=== PATIENT | female | born 1945 | race Caucasian/White ===

== ENCOUNTER 2019-10-06 13:54 | Outpatient (CLI) | payer OTHER, MEDICARE, SELFPAY ==
--- NOTE | 2019-10-06 14:36 | USCV_ITS ---
Halina Rivero Age: 74 Gender: F : 1945 Exam Date: 10/06/2019 14:39 Ordering Phys: Yossi Pineda MD Technologist: Magdalene Patiño Exam Location: [facility] [place] Risk Factors: None Previous Vascular Surgery: None Right Brachial BP: / Left Brachial BP: / Right Left Velocity (cm/s) Spectral Plaque Velocity (cm/s) Spectral Plaque Syst/Diast Broadening Syst/Diast Broadening 98.10/ 12.10 Prox CCA 119.60/ 12.10 103.60/14.30 Mid CCA 112.40/ 18.10 99.20/ 16.50 Distal CCA 93.10 / 15.70 81.60/ 12.20 Prox ICA 113.60/ 19.30 71.30/ 15.00 Mid ICA 103.90/ 18.10 110.70/24.40 Distal ICA 100.30/ 20.50 118.00 ECA 113.60 1.07 ICA/CCA 1.01 Antegrade Vertebral Antegrade 54.40/ 6.60 cm/s 43.10/ 9.10 cm/s Tri Subclavian Bi 139.0 156.9 0 0 FINDINGS Comparison: none available. No significant elevation of systolic or diastolic velocities. Waveforms are normal. Minimal bilateral, calcified plaque at the bifurcations with no elevation of velocity. Bilateral antegrade vertebral arteries. CONCLUSIONS Bilateral ICA stenosis less than 50%. Mild bilateral atherosclerosis. Dr. Kristen Hernandez DO (Electronically Signed) Final Date: 07 October 2019 07:42 S
== END 2019-10-06 13:55 | disposition home or self-care (01) ==
PROVIDERS: Family Provider Family Medicine; PCP Family Medicine; Visit Provider Family Medicine
DX: I10 Essential (primary) hypertension (principal); I65.23 Occlusion and stenosis of bilateral carotid arteries
CPT/HCPCS: 93880

== ENCOUNTER 2020-07-03 08:43 | Outpatient (CLI) | payer OTHER, MEDICARE, SELFPAY ==
--- NOTE | 2020-07-03 08:48 | MM_ITS ---
WS: [id number] BILATERAL SCREENING DIGITAL MAMMOGRAM WITH CAD HISTORY: SCREENING COMPARISON: 07/01/2019, 06/22/2018, 06/01/2018 04/17/2017 Bilateral CC and MLO views submitted. Computer aided detection analyzed. Breast composition: The breasts are heterogeneously dense, which may obscure small masses. No suspici ous masses, microcalcifications or architectural distortion. Scattered asymmetries are stable. MM/[place] [id number] IMPRESSION: BI-RADS: 2-Benign FOLLOW UP: 1 Year Follow-up
== END 2020-07-03 08:44 | disposition home or self-care (01) ==
LOC: RADSHAW 08:47
PROVIDERS: PCP Family Medicine; Visit Provider Family Medicine
DX: Z12.31 Encounter for screening mammogram for malignant neoplasm of breast (principal)
CPT/HCPCS: 77067

== ENCOUNTER 2021-08-16 09:33 | Outpatient (CLI) | payer MEDICARE, SELFPAY ==
--- NOTE | 2021-08-16 09:45 | MM_ITS ---
WS: [id number] Bilateral screening digital mammogram, 08/16/2021 Clinical Data: SCREENING Comparison: 07/03/2020, 07/01/2019, 06/22/2018, 06/01/2018, 04/17/2017, 04/07/2016, 01/05/2014, 12/21/2013, , 10/13/2012, 10/08/2011, 05/14/2010, 05/02/2010, 04/17/2009, 03/27/2009, 12/13/2007, 10/28/2006. Findings: The breast parenchymal pattern shows heterogeneous density. No spiculated masses or clustered calcif ications are seen. There are no secondary signs of carcinoma. MM/[place] [id number] Impression: 1. Negative bilateral mammogram unchanged. 2. Recommend annual screening mammograms. BIRADS: 1-Negative FOLLOW UP: 1 Year Follow-up The CAD production checker was used.
== END 2021-08-16 09:34 | disposition home or self-care (01) ==
LOC: RADSHAW 09:39
PROVIDERS: PCP Family Medicine; Visit Provider Family Medicine
DX: Z12.31 Encounter for screening mammogram for malignant neoplasm of breast (principal)
CPT/HCPCS: 77067

== ENCOUNTER → 2022-05-27 08:57 | Outpatient (BNVA) | payer MEDICARE, SELFPAY | PROVIDERS: PCP Family Medicine; Visit Provider Family Medicine | DX: I10 Essential (primary) hypertension (principal) | CPT/HCPCS: 80053; 80061 ==

== ENCOUNTER → 2022-06-10 13:35 | Outpatient (BNVA) | payer MEDICARE, SELFPAY | PROVIDERS: PCP Family Medicine; Visit Provider Family Medicine | DX: L98.9 Disorder of the skin and subcutaneous tissue, unspecified (principal); E87.1 Hypo-osmolality and hyponatremia; I10 Essential (primary) hypertension | CPT/HCPCS: 80048; 88304 ==

== ENCOUNTER → 2022-07-15 11:40 | Outpatient (BNVA) | payer MEDICARE, SELFPAY | PROVIDERS: PCP Family Medicine; Visit Provider Family Medicine | DX: E87.1 Hypo-osmolality and hyponatremia (principal); I10 Essential (primary) hypertension | CPT/HCPCS: 80048 ==

== ENCOUNTER 2022-08-18 07:35 | Outpatient (CLI) | payer MEDICARE, SELFPAY ==
--- NOTE | 2022-08-18 07:43 | MM_ITS ---
WS: [id number] BILATERAL SCREENING DIGITAL TOMOSYNTHESIS MAMMOGRAM WITH CAD HISTORY: SCREENING COMPARISON: 08/16/2021, 07/03/2020 Bilateral CC and MLO views with tomosynthesis and synthetic mammography submitted. Computer aided det ection analyzed. Breast composition: The breasts are heterogeneously dense, which may obscure small masses. No suspici ous masses, microcalcifications or architectural distortion. MM/[place] [id number] IMPRESSION: BI-RADS: 1-Negative FOLLOW UP: 1 Year Follow-up
== END 2022-08-18 07:36 | disposition home or self-care (01) ==
LOC: RAD 07:35
PROVIDERS: PCP Family Medicine; Visit Provider Family Medicine
DX: Z12.31 Encounter for screening mammogram for malignant neoplasm of breast (principal)
CPT/HCPCS: 77063; 77067

== ENCOUNTER → 2022-12-05 08:10 | Outpatient (BNVA) | payer MEDICARE, SELFPAY | PROVIDERS: PCP Family Medicine; Visit Provider Family Medicine | DX: E78.5 Hyperlipidemia, unspecified (principal); E87.1 Hypo-osmolality and hyponatremia; I10 Essential (primary) hypertension | CPT/HCPCS: 80053; 80061 ==

== ENCOUNTER 2023-09-18 09:39 | Outpatient (CLI) | payer MEDICARE, SELFPAY ==
--- NOTE | 2023-09-18 09:48 | MM_ITS ---
WS: [id number] BILATERAL SCREENING DIGITAL TOMOSYNTHESIS MAMMOGRAM WITH CAD HISTORY: SCREENING COMPARISON: 08/18/2022, 08/16/2021, 07/01/2019 and 06/01/2018 Bilateral CC and MLO views with tomosynthesis and synthetic mammography submitted. Computer aided det ection analyzed. Breast composition: The breasts are heterogeneously dense, which may obscure small masses. No suspici ous masses, microcalcifications or architectural distortion. Stable appearance of the benign-appearin g calcifications and asymmetries in each breast. IMPRESSION: MM/[place] [id number] BI-RADS: 2-Benign FOLLOW UP: 1 Year Follow-up
== END 2023-09-18 09:40 | disposition home or self-care (01) ==
LOC: RAD 09:39
PROVIDERS: PCP Family Medicine; Visit Provider Family Medicine
DX: Z12.31 Encounter for screening mammogram for malignant neoplasm of breast (principal)
CPT/HCPCS: 77063; 77067

== ENCOUNTER → 2024-06-08 09:39 | Outpatient (BNVA) | payer MEDICARE, SELFPAY | PROVIDERS: PCP Family Medicine; Visit Provider Family Medicine | DX: I10 Essential (primary) hypertension (principal); E78.5 Hyperlipidemia, unspecified | CPT/HCPCS: 80053; 80061; 80184; 85025 ==

== ENCOUNTER 2024-06-20 13:13 | Outpatient (CLI) | payer MEDICARE, SELFPAY ==
--- NOTE | 2024-06-20 13:30 | XR_ITS ---
WS: [id number] DEXA (DUAL ENERGY X-RAY ABSORPTIOMETRY) Bone mineral density was performed using a [employer] machine. HISTORY: f/u after treatment COMPARISON: 05/26/2019 Lumbar spine BMD (L1-L4): 1.062 g/cm2 T score: -1.0 Z score: 1.3 Total hip BMD: Left: 0.886 g/cm2. T score: -1.0 Z score: 1.2 Right: 0.843 g/cm2. T score: -1.3 Z score: 0.9 10 year probability of a major osteoporotic fracture is 10.6%. Compared to the prior study from 05/26/2019. Lumbar spine bone mineral density has decreased by 3.7%. Bilateral hips bone mineral density has decreased by 3.0%. XR/XR DEXA axial skeleton* [id number] IMPRESSION: OSTEOPENIA based upon the WHO classification for females. Significant decrease in bone mineral density within the lumbar spine and hips s julian the prior study.
== END 2024-06-20 13:14 | disposition home or self-care (01) ==
LOC: RAD 13:15
PROVIDERS: PCP Family Medicine; Visit Provider Family Medicine
DX: M81.0 Age-related osteoporosis without current pathological fracture (principal); Z00.00 Encounter for general adult medical examination without abnormal findings; M85.80 Other specified disorders of bone density and structure, unspecified site
CPT/HCPCS: 77080

== ENCOUNTER 2024-08-10 23:15 | Emergency (ER) | payer MEDICARE, SELFPAY ==
[2024-08-10 23:17] VITALS: BP 183/81; PULSE 78; RESP 15; TEMP 36.8; O2SAT 98; BMI 19.2
--- NOTE | 2024-08-10 23:21 | ECG_ITS ---
[facility]: 2024-[facility]10 Pat Name: Halina Rivero Department: Room: Gender: Female [place] Reporter: : 1945 Requested By: Sherron Noriega Order Number: [id number] Carlotta MD: Akhil Gorman M.D. Measurements Intervals [place] Rate: 75 P: 79 MO: 191 QRS: 75 QRSD: 86 T: 30 QT: 362 QTc: 404 Interpretive Statements SINUS RHYTHM POSSIBLE LEFT ATRIAL ENLARGEMENT [-0.1mV P-WAVE IN V1/V2] No previous ECG available for comparison Electronically Signed On 08-11-2024 13:49:45 COUNTER POCKET [employer] by Akhil Gorman M.D. [email or web address]
--- NOTE | 2024-08-10 23:27 | XRR_ITS ---
PROCEDURE INFORMATION: Exam: XR Chest Exam date and time: 08/10/2024 11:49 PM Age: 78 years old Clinical indication: Other: HTN; Additional info: Hypertension TECHNIQUE: Imaging protocol: Radiologic exam of the chest. Views: 1 view. COMPARISON: No relevant prior studies available. FINDINGS: Lungs: Unremarkable. No consolidation. Pleural spaces: Unremarkable. No pleural effusion. No pneumothorax. Heart/Mediastinum: Unremarkable. No cardiomegaly. Bones/joints: Mild scoliosis convex right. XR/XR chest 1V portable [id number] IMPRESSION: No acute findings.
--- NOTE | 2024-08-10 23:38 | ED_ITS ---
HPI - Recheck/Abnormal Lab/Rx 2 General: Chief Complaint: Recheck/Abnormal Lab/Rx Stated Complaint: BP High Time Seen by Provider: 08/10/24 23:20 History of Present Illness: 78-year-old female with a history of hyp ertension who presents emergency room with hypertension. She says she had a band feeling around her head. So she had checked her blood pressure 3 times and it kept going up until it was over 200 systolic. She took some extra blood pressure meds and it still did not come down so she came to the emergency room. No chest pain. No altered mental status. No shortness of breath. No nausea or vomiting. No fevers. No cough. Related Data Previous Rx's Medication Instructions Recorded amlodipine 5 mg tablet 5 mg PO BID #180 tabs 06/08/24 metoprolol tartrate 50 mg tablet 50 mg PO BID #180 tabs 06/08/24 phenobarbital 32.4 mg tablet 32.4 mg PO DIRECTED #90 tabs 06/09/24 montelukast 10 mg tablet See Rx Instructions .Route 08/01/24 .COMPLEX #90 tabs Allergies Allergy/AdvReac Type Severity Reaction Status Date / Time codeine AdvReac Intermediate vomiting Verified 08/10/24 23:33 lisinopril AdvReac Intermediate cough Verified 08/10/24 23:33 Review of Systems 2 Narrative: Constitutional symptoms: Negative except as documented in HPI. Skin symptoms: Negative except as documented in HPI. Eye symptoms: Negative except as documented in HPI. ENMT symptoms: Negative except as documented in HPI. Respiratory symptoms: Negative except as documented in HPI. Cardiovascular symptoms: Negative except as documented in HPI. Gastrointestinal symptoms: Negative except as documented in HPI. Genitourinary symptoms: Negative except as documented in HPI. Musculoskeletal symptoms: Negative except as documented in HPI. Neurologic symptoms: Negative except as documented in HPI. Psychiatric symptoms: Negative except as documented in HPI. Endocrine symptoms: Negative except as documented in HPI. PFSH ED 2 PFSH: Medical History Hyperlipidemia Hypertension Social History Smoking and tobacco/nicotine status: never used tobacco/nicotine Physical Exam 2 Narrative: EXAM NARRATIVE: General: Alert, no acute distress. Skin: Warm, dry. Head: Normocephalic, atraumatic. Neck: Supple, trachea midline. Eye: Extraocular movements are intact. Ears, nose, mouth and throat: mucosa moist. Cardiovascular: Regular, Normal peripheral perfusion. Respiratory: Lungs are clear to auscultation, respirations are non-labored, breath sounds are equal, Symmetrical chest wall expansion. Gastrointestinal: Soft, Nontender, Non distended Musculoskeletal: Normal ROM, no deformity. Neurological: Alert and oriented, No focal neurological deficit observed. Psychiatric: Cooperative, appropriate mood & affect. Course 2 Vital Signs: Vital signs: Vital Signs Temperature 98.3 F 08/10/24 23:17 Pulse Rate 68 08/11/24 00:03 Respiratory Rate 16 08/11/24 00:03 Blood Pressure 144/74 08/11/24 00:03 Pulse Oximetry 97 08/11/24 00:03 Oxygen Delivery Me thod Room Air 08/10/24 23:17 MDM - Recheck/Abnormal Lab/Rx Medical Decision Making Medical decision making: Differential diagnosis including but not limited to and based on the above HPI, review of systems and physical exam: Patient presents with hypertension: Essential hypertension. Stroke. acute coronary syndrome. kidney failure. congestive heart failure. anxiety Orders placed to evaluate differential diagnosis based on the above differential, HPI and physical exam EKG: Time 2321. Rate 75. Normal sinus rhythm, No ST-T changes, no ectopy, normal FL & QRS intervals, This was reviewed and interpreted by myself the ER physician at 2322 Chest x-ray: No acute process. No infiltrate. No pneumothorax. This was reviewed and interpreted by myself the emergency room physician. I also reviewed the radiology report. Lab Review: Laboratory results were reviewed and interpreted by myself the emergency room physician. White count is slightly low at 3.2. No anemia. Hemoglobin is 15. BUN/creatinine are normal at 17 and 0.7. Troponin is negative. She has had no chest pain. No UTI. I reviewed the patient's medical record. Reexamination: Patient remained stable. No increased work of breathing. No altered mental status. No focal motor deficits. Blood pressure has improved to 144/74 spontaneously. Assessment and plan: Hypertension - Discharged home - Discussed findings and plan with patient. Answered any questions. - All laboratory values were reviewed and interpreted personally by myself, the ER physician - All imaging was reviewed and interpreted personally by myself, the ER physician. - Evaluation and treatment of this problem were appropriate in the emergency setting Lab Data 08/11/24 00:05 08/11/24 00:05 Radiology Impressions Chest X-Ray 08/10/24 23:27 IMPRESSION: No acute findings. Laboratory Results WBC 3.20 10^3/uL (3.29-11.43) L 08/11/24 00:05 RBC 4.39 10^6/uL (3.85-5.65) 08/11/24 00:05 Hgb 15.20 g/dL (11.27-16.99) 08/11/24 00:05 Hct 43.2 % (36-47) 08/11/24 00:05 MCV 98.4 fl (85-98) H 08/11/24 00:05 MCH 34.6 pg (27-33) H 08/11/24 00:05 MCHC 35.2 g/dL (30-55) 08/11/24 00:05 RDW 11.5 % (12.1-15.1) L 08/11/24 00:05 Plt Count 137 10^3/cmm (157-399) L 08/11/24 00:05 MPV 8.5 fL (7.4-10.4) 08/11/24 00:05 Neut % (Auto) 53.5 % 08/11/24 00:05 Lymph % (Auto) 33.1 % 08/11/24 00:05 Fannin % (Auto) 8.1 % 08/11/24 00:05 Eos % (Auto) 4.4 % 08/11/24 00:05 Baso % (Auto) 0.9 % 08/11/24 00:05 Neut # (Auto) 1.71 10^3/uL (1.8-7.7) L 08/11/24 00:05 Lymph # (Auto) 1.1 10^3/uL (0.8-4.8) 08/11/24 00:05 Fannin # (Auto) 0.3 10^3/uL (0.2-0.9) 08/11/24 00:05 Eos # (Auto) 0.1 10^3/uL (0.0-0.8) 08/11/24 00:05 Baso # (Auto) 0.0 10^3/uL (0.0-0.1) 08/11/24 00:05 Nucleated RBC % (auto) 0 % 08/11/24 00:05 Nucleated RBCs # 0.0 /100WBC 08/11/24 00:05 Sodium 143 mmol/L (136-145) 08/11/24 00:05 Potassium 4.2 mmol/L (3.5-5.1) 08/11/24 00:05 Chloride 104 mmol/L (98-107) 08/11/24 00:05 Carbon Dioxide 28 mmol/L (22-29) 08/11/24 00:05 Anion Gap 15.2 (5-19) 08/11/24 00:05 BUN 17 mg/dL (8-23) 08/11/24 00:05 Creatinine 0.7 mg/dL (0.5-0.9) 08/11/24 00:05 GFR Calculation Not Reportable 08/11/24 00:05 Glucose 100 mg/dL (65-115) 08/11/24 00:05 Calcium 9.3 mg/dL (8.5-10.5) 08/11/24 00:05 Total Bilirubin 0.3 mg/dL (0.15-1.2) 08/11/24 00:05 AST 23 U/L (0-32) 08/11/24 00:05 ALT 25 U/L (0-33) 08/11/24 00:05 Alkaline Phosphatase 97 U/L (35-105) 08/11/24 00:05 Troponin T Baseline < 6 ng/L (0-10) 08/11/24 00:05 Total Protein 7.0 g/dL (6.6-8.7) 08/11/24 00:05 Albumin 4.6 g/dL (3.5-5.2) 08/11/24 00:05 Globulin 2.4 g/dL (1.3-4.6) 08/11/24 00:05 Urine Color Yellow (Yellow) 08/10/24 23:47 Urine Appearance Clear (CLEAR) 08/10/24 23:47 Urine pH TNP 08/10/24 23:47 Ur Specific [place] TNP 08/10/24 23:47 Urine Protein TNP 08/10/24 23:47 Urine Glucose (UA) TNP 08/10/24 23:47 Urine Ketones TNP 08/10/24 23:47 Urine Blood TNP 08/10/24 23:47 Urine Nitrate TNP 08/10/24 23:47 Urine Bilirubin TNP 08/10/24 23:47 Urine Urobilinogen TNP 08/10/24 23:47 Ur Leukocyte Esterase TNP 08/10/24 23:47 Urine RBC 0-4 /hpf (0-2) H 08/10/24 23:47 Urine WBC 0-4 /hpf (0-5) H 08/10/24 23:47 Ur Squamous Epith Cells 0-4 /hpf (0-5) H 08/10/24 23:47 Amorphous Sediment Not Reportable 08/10/24 23:47 Urine Bacteria Trace /hpf (NONE) 08/10/24 23:47 All radiology interpretation(s) finalized by discharge Discharge Plan Discharge Patient Disposition: Home Clinical Impression: Hypertension Condition: Stable Prescriptions: No Action amlodipine 5 mg tablet 5 mg PO BID Qty: 180 3RF metoprolol tartrate 50 mg tablet 50 mg PO BID Qty: 180 3RF phenobarbital 32.4 mg tablet 32.4 mg PO DIRECTED Qty: 90 5RF Rx Instructions: 1 in AM and 2 in PM montelukast 10 mg tablet See Rx Instructions .ROUTE .COMPLEX Qty: 90 3RF Dose Instruction: Take 1 tablet by mouth once daily Rx Instructions: Take 1 tablet by mouth once daily Discharge Orders: Discharge ED (Routine); Ordered 08/11/24 Ordered By: Sherron Sewell Referrals: Yossi Pienda MD [Primary Care Provider] - Discharge Diet: Usual diet Discharge Activity: Increase activity as tolerated Patient Instructions: Hypertension (ED), Opioid Safety, Pain Management Activity Restrictions/Additional Instructions: Thank you for choosing [facility] for your healthcare needs today. Please realize this is an emergency room and that we are providing you with a medical screening exam and this may not be complete and all inclusive of all the testing and or work up that you may need to determine your ailment or severity of your illness. You have been screened and evaluated and felt safe for discharge. Health conditions do change or evolve sometimes and as such it is important that you follow up with your Primary Doctor to be re checked, 3-5 days is a general good time frame for follow up. You are always welcome to return to the ED for re assessment if your symptoms are worsening or you have new concerns Coding Level of Care Code ED Software Testing Specialist for Yaron Turpin
[2024-08-10 23:51] VITALS: BP 197/90; PULSE 69; RESP 16; O2SAT 97
[2024-08-11 00:03] VITALS: BP 144/74; PULSE 68; RESP 16; O2SAT 97
[2024-08-11 00:06] LABS: UA Manual Slide Review YES; Urine Appearance Clear (CLEAR)
[2024-08-11 00:07] LABS: Add Urine Culture? No; Bacteria Urine TRACE /hpf; RBC Urine 0-4 /hpf (0-2); Squamous Epithelial Cell Urine 0-4 /hpf (0-5); Urine Color Yellow (Yellow); WBC Urine 0-4 /hpf (0-5)
[2024-08-11 00:15] LABS: Basophils % 0.9 %; Eosinophils # 0.1 10^3/uL (0.0-0.8); Eosinophils % 4.4 %; Hematocrit 43.2 % (36-47); Lymphocytes # 1.1 10^3/uL (0.8-4.8); Lymphocytes % 33.1 %; Mean Corpuscular HGB Conc 35.2 g/dL (30-55); Mean Corpuscular Hemoglobin 34.6 pg (27-33); Mean Corpuscular Volume 98.4 fl (85-98); Mean Platelet Volume 8.5 fL (7.4-10.4); Monocytes # 0.3 10^3/uL (0.2-0.9); Monocytes % 8.1 %; Neutrophils # 1.71 10^3/uL (1.8-7.7); Neutrophils % 53.5 %; Nucleated Red Blood Cells % 0 %; Platelet Count 137 10^3/cmm (157-399); Red Blood Count 4.39 10^6/uL (3.85-5.65); Red Cell Distribution Width 11.5 % (12.1-15.1)
[2024-08-11 00:33] LABS: Troponin(5th) Baseline < 6 ng/L (0-10)
[2024-08-11 00:38] LABS: Alanine Aminotransferase 25 U/L (0-33); Albumin Level 4.6 g/dL (3.5-5.2); Alkaline Phosphatase 97 U/L (35-105); Anion Gap 15.2 (5-19); Aspartate Amino Transferase 23 U/L (0-32); Blood Urea Nitrogen 17 mg/dL (8-23); Calcium 9.3 mg/dL (8.5-10.5); Carbon Dioxide 28 mmol/L (22-29); Chloride 104 mmol/L (98-107); Creatinine Clr Calc Pharmacy 50.1885; Globulin 2.4 g/dL (1.3-4.6); Glucose 100 mg/dL (65-115); Osmolality Calculated 298 mOsm/kg (285-295); Potassium 4.2 mmol/L (3.5-5.1); Sodium 143 mmol/L (136-145); Total Bilirubin 0.3 mg/dL (0.15-1.2)
[2024-08-11 00:53] VITALS: BP 143/76; PULSE 67; O2SAT 97
== END 2024-08-11 00:54 | disposition home or self-care (01) ==
PROVIDERS: Emergency Provider Emergency Medicine; PCP Family Medicine
DX: I10 Essential (primary) hypertension (principal); E78.5 Hyperlipidemia, unspecified
CPT/HCPCS: 36415; 71045; 80053; 81001; 84484; 85025; 93005; 99285

== ENCOUNTER → 2024-08-18 14:05 | Outpatient (BNVA) | payer MEDICARE, SELFPAY | PROVIDERS: PCP Family Medicine; Visit Provider Family Medicine | DX: D72.819 Decreased white blood cell count, unspecified (principal) | CPT/HCPCS: 85025 ==

== ENCOUNTER 2024-09-26 10:43 | Outpatient (CLI) | payer MEDICARE, SELFPAY ==
--- NOTE | 2024-09-26 10:48 | MM_ITS ---
WS: [id number] BILATERAL SCREENING DIGITAL TOMOSYNTHESIS MAMMOGRAM WITH CAD HISTORY: SCREENING COMPARISON: 09/18/2023, 08/18/2022 Bilateral CC and MLO views with tomosynthesis and synthetic mammography submitted. Computer aided det ection analyzed. Breast composition: The breasts are heterogeneously dense, which may obscure small masses. No suspici ous masses, microcalcifications or architectural distortion. Stable asymmetries within each breast. N o new or suspicious grouping of calcification. MM/MM scr tomosynthesis [id number] IMPRESSION: BI-RADS: 2 - Benign FOLLOW UP: 1 Year Follow-up
== END 2024-09-26 10:44 | disposition home or self-care (01) ==
LOC: RAD 10:45
PROVIDERS: PCP Family Medicine; Visit Provider Family Medicine
DX: Z12.31 Encounter for screening mammogram for malignant neoplasm of breast (principal); R92.333 Mammographic heterogeneous density, bilateral breasts; N64.89 Other specified disorders of breast
CPT/HCPCS: 77063; 77067

== ENCOUNTER → 2024-10-25 08:35 | Outpatient (BNVA) | payer MEDICARE, SELFPAY | PROVIDERS: PCP Family Medicine; Visit Provider Family Medicine | DX: I10 Essential (primary) hypertension (principal) | CPT/HCPCS: 80048; 83880 ==

== ENCOUNTER 2024-11-09 07:38 | Outpatient (CLI) | payer MEDICARE, SELFPAY ==
--- NOTE | 2024-11-09 07:45 | USCV_ITS ---
Halina Rivero Age: 79 Gender: F : 1945 Exam Date: 11/09/2024 07:47 Ordering Phys: Yossi Pineda MD Technologist: [employer] Exam Location: [facility] [place] Indication: HTN Aortic Velocity @ SMA (cm/s) 108 RIGHT KIDNEY LEFT KIDNEY Velocity (cm/s) Velocity (cm/s) Sys/Freeman Sys/Freeman Resistive Index Resistive Index 27.8 / 3.9 0.86 Proximal Renal Artery 62.4 / 13.0 0.79 20.3 / 2.8 0.86 Mid Renal Artery 41.7 / 9.9 0.76 24.8 / 4.0 0.84 Distal Renal Artery 46.5 / 11.5 0.75 84.6 / 17.1 0.80 Hilar 57.6 / 13.0 0.77 40.8 / 9.1 0.78 Upper Pole 33.9 / 11.3 0.67 29.5 / 9.3 0.68 Mid Pole 18.2 / 5.6 0.69 26.7 / 7.5 0.72 Lower Pole 31.3 / 7.8 0.75 0.78 Renal Aortic Ratio 0.58 Accleration Time (sec) 0.22 Hilar 0.11 0.19 Upper Pole 0.19 0.21 Mid Pole 0.17 0.14 Lower Pole 0.12 9.8 Kidney Length (cm) 8.8 CONCLUSIONS No hyronephrosis in either kidney Increased RI right kidney suggestive of mild medical renal or parenchymal disease No sonographic evidence of hemodynamically significant renal artery stenosis bilaterally. Benny Mustafa MD (Electronically Signed) Final Date: 09 November 2024 11:29 S
== END 2024-11-09 07:39 | disposition home or self-care (01) ==
PROVIDERS: PCP Family Medicine; Visit Provider Family Medicine
DX: I10 Essential (primary) hypertension (principal); R93.421 Abnormal radiologic findings on diagnostic imaging of right kidney
CPT/HCPCS: 93975

== ENCOUNTER → 2025-03-23 07:57 | Outpatient (BNVA) | payer MEDICARE, SELFPAY | PROVIDERS: PCP Family Medicine; Visit Provider Family Medicine | DX: F41.9 Anxiety disorder, unspecified (principal); I10 Essential (primary) hypertension; E78.5 Hyperlipidemia, unspecified; D72.819 Decreased white blood cell count, unspecified | CPT/HCPCS: 80053; 80061; 85025 ==